=== PATIENT | male | born 1955 | race Caucasian/White ===

== ENCOUNTER 2019-10-15 09:08 | Day surgery (SDC) | payer SELFPAY ==
[~2019-10-15 09:08] MED LIST: Bupivacaine 0.5% 50 ML MDV ONE; Lidocaine 1% with EPINEPHrine 1:100,000 50 ML MDV ONE
[2019-10-15] MEDS ORDERED: Dextrose 5%-Lactated Ringers 1,000 ML IV SCH (09:45)
[2019-10-15] MEDS ORDERED: ceFAZolin 2 GM in Premix Bag 1 BAG IV ONE (10:30)
[2019-10-15] MEDS ORDERED: Propofol 200 MG/20 ML SDV ONE (11:00)
[2019-10-15] MEDS ORDERED: Midazolam 1 MG/ML 2 ML SDV ONE (11:00)
[2019-10-15] MEDS ORDERED: fentaNYL 100 MCG/2 ML SDV ONE (11:00)
[2019-10-15] MEDS ORDERED: Bacitracin Oint 28.35 GM Tube ONE (11:18)
--- NOTE | 2019-10-19 09:57 | OR ---
DATE OF PROCEDURE: 10/15/2019 SURGEON: Trae Hi MD PREOPERATIVE DIAGNOSIS: Large epidermoid cyst, right cheek. POSTOPERATIVE DIAGNOSIS: Large epidermoid cyst, right cheek. OPERATIVE PROCEDURE: Excisional of large epidermoid cyst right cheek with layered closure ([id number]). ANESTHESIA: Local plus IV sedation. INDICATIONS FOR PROCEDURE: This is a 64-year-old presenting with a large epidermoid cyst on the right cheek. This is quite reddened and edematous, appears to be likely fairly close to spontaneously draining. Plan is to proceed with excision of this. Potential risks of the procedure including bleeding, infection, cosmetic deformity were reviewed, and the patient wishes to proceed. DETAILS OF PROCEDURE: The patient was taken to the operating room and placed in a supine position. IV sedation was administered, after which the area was prepped and draped, and anesthetized with 1% lidocaine mixed with Marcaine. A somewhat oblique elliptical incision in the lines of skin creases was then made and carried down through the skin and subcutaneous tissue. Using careful dissection, the cyst was then removed in an intact manner and delivered from the field. Deeper soft tissue was approximated with a layer of 4- 0 Vicryl stitch deep, 5-0 Vicryl subdermal stitch, and then a 5-0 Prolene skin stitch. The lesion and margin included length of 3.2 cm and the incision length was 4.5 cm. Bacitracin was applied. The patient was taken to the recovery room in satisfactory condition. There were no evident complications. Trae Hi MD /[id number]
== END 2019-10-15 13:18 | disposition home or self-care (01) ==
LOC: JP.SDS 09:08
PROVIDERS: ATTEND Surgery
DX: L72.0 Epidermal cyst (principal); I10 Essential (primary) hypertension
CPT/HCPCS: 88304; A9270-GY; J0690; J2250; J2704; J3010; J3490; J7121

== ENCOUNTER 2021-01-11 13:41 | Emergency (ER) | payer MEDICARE ==
[2021-01-11] MEDS ORDERED: Sodium Chloride 0.9% 10 ML Syringe FLUSH PRN (13:48)
[2021-01-11] MEDS ORDERED: diphenhydrAMINE 50 MG/ML SDV IM ONE (13:48)
[2021-01-11] MEDS ORDERED: methylPREDNISolone Sodium Succinate 125 MG/2 ML SDV IV ONE (13:48)
[2021-01-11] MEDS ORDERED: EPINEPHrine 1 MG/ML SDV IM ONE (13:48)
[2021-01-11] MEDS ORDERED: Famotidine 20 MG/2 ML SDV IVPUSH ONE (13:48)
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
[2021-01-11] MEDS ORDERED: amLODIPine 5 MG Tab PO ONE (16:35)
== END 2021-01-11 21:17 | disposition home or self-care (01) ==
LOC: JP.ED 13:41
DX: T78.3XXA Angioneurotic edema, initial encounter (principal); T44.5X5A Adverse effect of predominantly beta-adrenoreceptor agonists, initial encounter; I10 Essential (primary) hypertension; E03.9 Hypothyroidism, unspecified; E66.9 Obesity, unspecified; Z68.29 Body mass index [BMI] 29.0-29.9, adult; Z88.8 Allergy status to other drugs, medicaments and biological substances; Z79.899 Other long term (current) drug therapy
CPT/HCPCS: 36415; 86850; 86900; 86901; 96372; 96374; 96375; 99284; A9270; J0171; J1200; J2930; J3490

== ENCOUNTER 2021-11-29 11:09 | Emergency (ER) | payer MEDICARE ==
[2021-11-29] MEDS ORDERED: cefTRIAXone 1 GM Vial IM ONE (11:49)
== END 2021-11-29 12:08 | disposition home or self-care (01) ==
LOC: JP.ED 11:09
DX: K04.7 Periapical abscess without sinus (principal); I10 Essential (primary) hypertension; E03.9 Hypothyroidism, unspecified; E66.9 Obesity, unspecified; Z68.32 Body mass index [BMI] 32.0-32.9, adult; Z88.8 Allergy status to other drugs, medicaments and biological substances; Z79.899 Other long term (current) drug therapy; Z72.0 Tobacco use
CPT/HCPCS: 96372; 99283; J0696

== ENCOUNTER 2024-01-17 10:55 | Inpatient (IN) | payer MEDICARE ==
[2024-01-17 11:35] LABS: APPEARANCE,URINE SLIGHTLY CLOUDY (CLEAR); BILIRUBIN,URINE SMALL (NEGATIVE); COLOR,URINE YELLOW (YELLOW); GLUCOSE,URINE NEGATIVE (NEGATIVE); KETONES,URINE NEGATIVE (NEGATIVE); LEUKOCYTE ESTERASE,URINE SMALL (NEGATIVE); NITRITE,URINE NEGATIVE (NEGATIVE); OCCULT BLOOD,URINE TRACE-INTACT (NEGATIVE); PH,URINE 5.5 (5.0-8.0); PROTEIN,URINE 30 mg/dL (NEGATIVE)
[2024-01-17 11:40] LABS: RBC,URINE 0-5 (0-5)
[2024-01-17 11:41] LABS: AMORPHOUS SEDIMENT,URINE RARE; BACTERIA,URINE MANY; EPITHELIAL CELLS,URINE NOT SEEN; MUCUS,URINE NOT SEEN
[2024-01-17 12:00] LABS: CORONAVIRUS COVID-19 NAA NEGATIVE (NEGATIVE); INFLUENZA A NAA NEGATIVE (NEGATIVE); INFLUENZA B NAA NEGATIVE (NEGATIVE); RESPIRATORY SYNCYTIAL VIR NAA NEGATIVE (NEGATIVE)
[2024-01-17] MEDS: Sodium Chloride 0.9% 10 ML Syringe FLUSH PRN (12:03)
[2024-01-17 12:05] LABS: HEMATOCRIT 37.2 % (38.4-49.7); HEMOGLOBIN 14.4 g/dL (12.9-16.9); MEAN CORPUSCULAR HEMOGLOBIN 32.6 pg (31.6-35.5); MEAN CORPUSCULAR HGB CONC 38.7 g/dL (31.6-35.5); MEAN CORPUSCULAR VOLUME 84.2 fL (81.4-99.0); PLATELET COUNT,PLT 103 K/uL (130-375); RED BLOOD CELL COUNT 4.42 M/uL (4.14-5.76); WHITE BLOOD CELL COUNT,WBC 14.7 K/uL (3.2-11.0)
[2024-01-17 12:22] LABS: CALCIUM 7.6 mg/dL (8.5-10.1); CREATININE 1.8 mg/dL (0.8-1.3); EST CRCL DRUG DOSING (CG) 41.29 mL/min; POTASSIUM,K 4.7 mmol/L (3.6-5.2)
[2024-01-17 12:25] LABS: BAND ABSOLUTE MAN 0.88 K/uL; BAND PERCENT MAN 6 % (5-11); LYMPHOCYTES ABSOLUTE MAN 0.59 K/uL (0.8-3.3); LYMPHOCYTES PERCENT MAN 4 % (24-44); MONOCYTES ABSOLUTE MAN 0.44 K/uL (0.20-0.90); MONOCYTES PERCENT MAN 3 % (2-6); NEUTROPHILS ABSOLUTE MAN 12.79 K/uL (1.0-7.6); SEG NEUTROPHILS PERCENT MAN 87 % (36-66)
[2024-01-17 12:27] LABS: ANION GAP 14.7 mmol/L (5.0-14.0)
[2024-01-17] MEDS: cefTRIAXone 1 GM in Sodium Chloride 0.9% 50 ML IV ONE (12:39)
[2024-01-17] MEDS: Sodium Chloride 0.9% 1,000 ML IV ONE (12:39)
[2024-01-17 13:03] LABS: LACTIC ACID 2.4 mmol/L (0.4-2.0)
[2024-01-17] MEDS: Doxycycline 100 MG in Sodium Chloride 0.9% 100 ML IV ONE (13:14)
[2024-01-17] MEDS ORDERED: Sodium Chloride 0.9% 10 ML Syringe FLUSH PRN (15:11)
[2024-01-17] MEDS ORDERED: Ondansetron 4 MG/2 ML SDV IV PRN (15:11)
[2024-01-17] MEDS ORDERED: Polyethylene Glycol 3350 Powder 17 GM Packet PO PRN (15:11)
[2024-01-17] MEDS: Azithromycin 500 MG in Sodium Chloride 0.9% 250 ML IV SCH (16:50)
[2024-01-17] MEDS: Acetaminophen 325 MG Tab PO PRN (16:52)
[2024-01-17] MEDS: Enoxaparin 40 MG/0.4 ML Syringe SUBCUT SCH (16:52)
[2024-01-17] MEDS: Sodium Chloride 0.9% 1,000 ML IV SCH (20:34)
[2024-01-18 05:20] LABS: HEMATOCRIT 34.3 % (38.4-49.7); HEMOGLOBIN 12.9 g/dL (12.9-16.9); MEAN CORPUSCULAR HEMOGLOBIN 32.1 pg (31.6-35.5); MEAN CORPUSCULAR HGB CONC 37.6 g/dL (31.6-35.5); MEAN CORPUSCULAR VOLUME 85.3 fL (81.4-99.0); RED BLOOD CELL COUNT 4.02 M/uL (4.14-5.76); WHITE BLOOD CELL COUNT,WBC 15.5 K/uL (3.2-11.0)
[2024-01-18 05:33] LABS: CALCIUM 7.1 mg/dL (8.5-10.1); CREATININE 1.6 mg/dL (0.8-1.3); EST CRCL DRUG DOSING (CG) 45.76 mL/min; MAGNESIUM 1.9 mg/dL (1.8-2.4); POTASSIUM,K 4.3 mmol/L (3.6-5.2)
[2024-01-18 05:37] LABS: ANION GAP 12.3 mmol/L (5.0-14.0)
[2024-01-18] MEDS: Levothyroxine 100 MCG Tab PO SCH (08:00)
[2024-01-18] MEDS: Levothyroxine 25 MCG Tab PO SCH (08:00)
[2024-01-18] MEDS: Naltrexone 50 MG Tab PO SCH (08:04)
[2024-01-18] MEDS: Sodium Chloride 0.9% 1,000 ML IV SCH (11:33)
[2024-01-18] MEDS: cefTRIAXone 1 GM in Sodium Chloride 0.9% 50 ML IV SCH (11:43)
[2024-01-19 05:29] LABS: HEMATOCRIT 37.9 % (38.4-49.7); HEMOGLOBIN 14.3 g/dL (12.9-16.9); MEAN CORPUSCULAR HEMOGLOBIN 31.7 pg (31.6-35.5); MEAN CORPUSCULAR HGB CONC 37.7 g/dL (31.6-35.5); RED BLOOD CELL COUNT 4.51 M/uL (4.14-5.76); WHITE BLOOD CELL COUNT,WBC 15.3 K/uL (3.2-11.0)
[2024-01-19 05:46] LABS: CALCIUM 7.5 mg/dL (8.5-10.1); CREATININE 0.9 mg/dL (0.8-1.3); EST CRCL DRUG DOSING (CG) 81.34 mL/min; POTASSIUM,K 3.9 mmol/L (3.6-5.2)
[2024-01-19 05:49] LABS: ANION GAP 13.9 mmol/L (5.0-14.0)
[2024-01-19] MEDS ORDERED: Albuterol 0.083% 2.5 MG/3 ML Neb Soln NEB PRN (11:48)
[2024-01-19] MEDS ORDERED: methylPREDNISolone Sodium Succinate 40 MG/1 ML SDV IVPUSH SCH (12:00)
[2024-01-19] MEDS ORDERED: Sodium Chloride 0.9% 1,000 ML IV SCH (12:00)
[2024-01-19] MEDS ORDERED: Albuterol/Ipratropium 3.0-0.5 MG/3 ML Neb Soln NEB SCH (16:00)
[2024-01-20 05:09] LABS: HEMATOCRIT 35.8 % (38.4-49.7); HEMOGLOBIN 13.4 g/dL (12.9-16.9); MEAN CORPUSCULAR HEMOGLOBIN 32.2 pg (31.6-35.5); MEAN CORPUSCULAR HGB CONC 37.4 g/dL (31.6-35.5); MEAN CORPUSCULAR VOLUME 86.1 fL (81.4-99.0); PLATELET COUNT,PLT 121 K/uL (130-375); RED BLOOD CELL COUNT 4.16 M/uL (4.14-5.76); WHITE BLOOD CELL COUNT,WBC 27.8 K/uL (3.2-11.0)
[2024-01-20 05:38] LABS: A/G RATIO 0.4 (1.2-2.2); ALANINE AMINOTRANSFERASE,ALT 116 U/L (12-78); ALBUMIN 1.6 g/dL (3.4-5.0); ALKALINE PHOSPHATASE 591 U/L (46-116); ANION GAP 8.8 mmol/L (5.0-14.0); ASPARTATE AMNIOTRANSFERASE,AST 117 U/L (15-37); BILIRUBIN TOTAL 1.3 mg/dL (0.2-1.0); BLOOD UREA NITROGEN,BUN 18 mg/dL (7-18); CALCIUM 7.8 mg/dL (8.5-10.1); CARBON DIOXIDE,CO2 25 mmol/L (21-32); CHLORIDE,CL 97 mmol/L (100-108); CHOLESTEROL HDL 12 mg/dL (40-60); CHOLESTEROL LDL DIRECT 79 mg/dL (0-100); CHOLESTEROL TOTAL 156 mg/dL (0-200); CREATININE 0.9 mg/dL (0.8-1.3); EST CRCL DRUG DOSING (CG) 81.34 mL/min; ESTIMATED GFR 92 mL/min (>60); GLUCOSE RANDOM 103 mg/dL (74-106); POTASSIUM,K 3.8 mmol/L (3.6-5.2); PROTEIN TOTAL,TP 5.4 g/dL (6.4-8.2); SODIUM,NA 127 mmol/L (140-148); TRIGLYCERIDES 352 mg/dL (15-150); TSH ULTRASENSITIVE 5.787 uIU/mL (0.358-3.740)
[2024-01-20 06:20] LABS: LYMPHOCYTES ABSOLUTE MAN 12.51 K/uL (0.8-3.3); LYMPHOCYTES PERCENT MAN 45 % (24-44); METAMYELOCYTE ABSOLUTE MAN 0.56 K/uL; METAMYELOCYTE PERCENT MAN 2 %; MONOCYTES ABSOLUTE MAN 2.78 K/uL (0.20-0.90); MONOCYTES PERCENT MAN 10 % (2-6); NEUTROPHILS ABSOLUTE MAN 11.95 K/uL (1.0-7.6); SEG NEUTROPHILS PERCENT MAN 43 % (36-66)
[2024-01-20 09:01] LABS: HEMOGLOBIN A1C 6.2 % (4.5-6.2)
[2024-01-20] MEDS: Sodium Chloride 0.9% 80 ML IV SCH (12:08)
[2024-01-20] MEDS: Iopamidol 612 MG/ML 100 ML Bottle IV PRN (12:08)
[2024-01-20] MEDS: Sodium Chloride 0.9% 10 ML Syringe FLUSH PRN (12:08)
[2024-01-20] MEDS: Azithromycin 250 MG Tab PO SCH (14:25)
== END 2024-01-20 14:35 | disposition home or self-care (01) | DRG 193 ==
LOC: JP.ED 10:55 → JP.ICU 12:53
PROVIDERS: ADMIT Hospitalist; ATTEND Internal Medicine
DX: J18.9 Pneumonia, unspecified organism (principal); A41.9 Sepsis, unspecified organism; J96.01 Acute respiratory failure with hypoxia; E87.1 Hypo-osmolality and hyponatremia; N39.0 Urinary tract infection, site not specified; D72.820 Lymphocytosis (symptomatic); D69.6 Thrombocytopenia, unspecified; Z79.899 Other long term (current) drug therapy; E03.9 Hypothyroidism, unspecified; E66.9 Obesity, unspecified; F32.A Depression, unspecified; F41.9 Anxiety disorder, unspecified; I10 Essential (primary) hypertension; F10.20 Alcohol dependence, uncomplicated; E86.1 Hypovolemia; B96.20 Unspecified Escherichia coli [E. coli] as the cause of diseases classified elsewhere; F17.210 Nicotine dependence, cigarettes, uncomplicated; Z88.8 Allergy status to other drugs, medicaments and biological substances; Z90.89 Acquired absence of other organs; Z98.890 Other specified postprocedural states; Z68.31 Body mass index [BMI] 31.0-31.9, adult; Z79.890 Hormone replacement therapy
CPT/HCPCS: 0241U; 36415; 71046; 74177; 80048; 80053; 80061; 81001; 83036; 83605; 83735; 84145; 84295; 84439; 84443; 85007; 85025; 85027; 85060; 87040; 87086; 87088; 87186; 96374; 97161; 99222; 99231; 99238; 99285; A9270-GY; J0456; J0696; J1650; J3490; J7030; J7050; Q9967